=== PATIENT | male | born 1960 | race African-American/Black ===

== ENCOUNTER → 2017-05-28 | Outpatient (CLI) | payer OTHER ==
[2017-05-28 10:33] LABS: BASOPHIL % 0.5 % (0-2); PLATELET COUNT 317 x10^3mcL (130-400); RED CELL DISTRIBUTION WIDTH 13.4 % (11.5-14.5)
[2017-05-28 10:43] LABS: ALBUMIN 3.5 g/dL (3.4-5.0); BILIRUBIN TOTAL 0.55 mg/dL (0.20-1.00); CHOLESTEROL/HDL RATIO 5.2; CREATININE SERUM 1.4 mg/dL (0.7-1.3); POTASSIUM SERUM 4.6 mmol/L (3.5-5.1); TOTAL PROTEIN, SERUM 8.2 g/dL (6.4-8.2)
[2017-05-28 10:59] LABS: T3 TOTAL 1.21 ng/mL
[2017-05-28 12:56] LABS: FREE T4 0.95 ng/dL (0.76-1.46); FREE THYROXINE INDEX 2.7 ug/dL (1.4-4.5); T4(THYROXINE) 7.8 ug/dL (4.7-13.3)
== END | disposition home or self-care (01) ==
LOC: LB 09:56
PROVIDERS: Family Medicine
DX: Z00.00 Encounter for general adult medical examination without abnormal findings (principal)
CPT/HCPCS: 84439

== ENCOUNTER → 2017-11-14 | Outpatient (CLI) | payer OTHER ==
[2017-11-14 08:49] LABS: PLATELET COUNT 244 x10^3mcL (130-400); RED CELL DISTRIBUTION WIDTH 14.1 % (11.5-14.5)
[2017-11-14 09:01] LABS: ALBUMIN 3.5 g/dL (3.4-5.0); BILIRUBIN TOTAL 0.49 mg/dL (0.20-1.00); CALCIUM 8.9 mg/dL (8.5-10.1); CARBON DIOXIDE 26.8 mmol/L (21-32); CHOLESTEROL/HDL RATIO 4.3; CREATININE SERUM 1.5 mg/dL (0.7-1.3); POTASSIUM SERUM 4.5 mmol/L (3.5-5.1); TOTAL PROTEIN, SERUM 7.8 g/dL (6.4-8.2)
== END | disposition home or self-care (01) ==
LOC: LB 08:09
DX: I10 Essential (primary) hypertension (principal); E78.5 Hyperlipidemia, unspecified; R79.89 Other specified abnormal findings of blood chemistry

== ENCOUNTER 2018-09-18 08:18 | Emergency (ER) | payer OTHER ==
[~2018-09-18] VITALS: Ht 180.3 cm; Wt 147.0 kg
[2018-09-18 08:29] VITALS: Ht 180.3 cm; Wt 147.0 kg
[2018-09-18 10:17] VITALS: BP 135/71
== END 2018-09-18 10:18 | disposition home or self-care (01) ==
LOC: ED 08:18
DX: J02.9 Acute pharyngitis, unspecified (principal); I10 Essential (primary) hypertension

== ENCOUNTER → 2018-10-19 | Outpatient (CLI) | payer OTHER ==
[2018-10-19 11:56] LABS: BASOPHIL % 0.8 % (0-2); PLATELET COUNT 254 x10^3mcL (130-400); RED CELL DISTRIBUTION WIDTH 14.4 % (11.5-14.5)
[2018-10-19 12:05] LABS: ALBUMIN 3.6 g/dL (3.4-5.0); BILIRUBIN TOTAL 0.5 mg/dL (0.20-1.00); CARBON DIOXIDE 27.4 mmol/L (21-32); CHOLESTEROL/HDL RATIO 4.6; CREATININE SERUM 1.4 mg/dL (0.7-1.3); POTASSIUM SERUM 4.3 mmol/L (3.5-5.1); TOTAL PROTEIN, SERUM 7.9 g/dL (6.4-8.2)
== END | disposition home or self-care (01) ==
LOC: LB 11:20
DX: E66.01 Morbid (severe) obesity due to excess calories (principal); I10 Essential (primary) hypertension

== ENCOUNTER → 2019-02-13 | Outpatient (CLI) | payer OTHER ==
[2019-02-13 11:07] LABS: UA SPECIFIC GRAVITY 1.015 (1.005-1.035); microscopic required? YES; urine erythrocyte 2+ (NEGATIVE)
[2019-02-13 11:12] LABS: ALBUMIN 3.5 g/dL (3.4-5.0); CALCIUM 8.6 mg/dL (8.5-10.1); CARBON DIOXIDE 25.6 mmol/L (21-32); CHLORIDE SERUM 106 mmol/L (98-107); CHOLESTEROL 196 mg/dL (<200); CHOLESTEROL/HDL RATIO 4.4; CREATININE SERUM 1.3 mg/dL (0.7-1.3); GFR1 > 60 mL/min; GLUCOSE SERUM 95 mg/dL (74-106); HDL CHOLESTEROL 45 mg/dL (40-60); PHOSPHOROUS 3.5 mg/dL (2.5-4.9); POTASSIUM SERUM 4.1 mmol/L (3.5-5.1); SODIUM SERUM 140 mmol/L (136-145); TRIGLYCERIDES 82 mg/dL (<150); URIC ACID 7.7 mg/dL (3.5-7.2)
[2019-02-16 04:07] LABS: PTH INTACT 68 pg/mL (15-65)
== END | disposition home or self-care (01) ==
LOC: LB 10:32
DX: N18.3 Chronic kidney disease, stage 3 (moderate) (principal); E55.9 Vitamin D deficiency, unspecified; E78.5 Hyperlipidemia, unspecified; N40.0 Benign prostatic hyperplasia without lower urinary tract symptoms
CPT/HCPCS: 84153

== ENCOUNTER → 2019-06-12 | Outpatient (CLI) | payer OTHER ==
[2019-06-12 11:33] LABS: BASOPHIL % 0.8 % (0-2); PLATELET COUNT 231 x10^3mcL (130-400)
[2019-06-12 11:49] LABS: microscopic required? YES; urine erythrocyte TRACE (NEGATIVE)
[2019-06-12 12:19] LABS: ALBUMIN 3.4 g/dL (3.4-5.0); BILIRUBIN TOTAL 0.64 mg/dL (0.20-1.00); CARBON DIOXIDE 27.9 mmol/L (21-32); CHOLESTEROL/HDL RATIO 3.6; CREATININE SERUM 1.4 mg/dL (0.7-1.3); POTASSIUM SERUM 4.2 mmol/L (3.5-5.1)
== END | disposition home or self-care (01) ==
LOC: LB 11:08
DX: E78.5 Hyperlipidemia, unspecified (principal); I10 Essential (primary) hypertension; E55.9 Vitamin D deficiency, unspecified; N40.0 Benign prostatic hyperplasia without lower urinary tract symptoms